=== PATIENT | female | born 1990 | race Caucasian/White ===

== ENCOUNTER → 2016-07-31 | Outpatient (CLI) | payer OTHER ==
[~2016-07-31] MED LIST: AMOXICILLIN500 MG PO; BACTRIM DS 8001 TA1 PO; BACTROBAN CREAM15 GM PO; BIAXIN500 MG PO; CEPHALEXIN500 M1 PO; CLARITIN10 MG PO; COLACE100 MG PO; DIFLUCAN150 MG PO; IRON325 M1 PO; KEFLEX500 MG PO; MACROBID100 M1 PO; MIRALAX POWDER17 G1 PO; MOTRIN800 MG PO; PEN-VK500 MG PO; PERCOCET 325 MG1 TA6 PO; PRENATAL1 TA1 PO; PRENATAL1 TA3 PO; PRILOSEC20 M1; ROBITUSSIN DM PO; ROBITUSSIN100 MG/5 M PO; ZITHROMAX Z PA250 MG PO; ZYRTEC10 MG PO
== END | disposition home or self-care (01) ==
LOC: RAD 14:28
DX: M25.562 Pain in left knee (principal); M79.605 Pain in left leg

== ENCOUNTER 2016-12-09 16:30 | Emergency (ER) | payer OTHER ==
[~2016-12-09] VITALS: Wt 68.0 kg
[2016-12-09 16:42] VITALS: BP 132/66
[2016-12-09] MEDS ORDERED: CLARITIN10 MG PO (17:34)
[2016-12-09] MEDS ORDERED: ROBITUSSIN DM 105 ML PO (17:34)
[2016-12-09] MEDS ORDERED: FLONASE ALLERG9.9 ML NAS (17:34)
== END 2016-12-09 18:09 | disposition home or self-care (01) ==
LOC: ED 16:30
DX: B34.9 Viral infection, unspecified (principal); R03.0 Elevated blood-pressure reading, without diagnosis of hypertension; F17.200 Nicotine dependence, unspecified, uncomplicated

== ENCOUNTER 2017-11-26 20:55 | Emergency (ER) | payer OTHER ==
[~2017-11-26] VITALS: Ht 175.2 cm; Wt 81.2 kg
[~2017-11-26 20:55] MED LIST changes: +FLONASE ALLERG9.9 ML NAS; +ROBITUSSIN DM 105 ML PO
[2017-11-26 20:58] VITALS: BP 129/69
[2017-11-26] MEDS ORDERED: AMOXICILLIN500 M3 PO (21:13)
[2017-11-26] MEDS ORDERED: PROAIR HFA8.5 GM INH (21:14)
== END 2017-11-26 21:45 | disposition home or self-care (01) ==
LOC: ED 20:55
DX: O99.512 Diseases of the respiratory system complicating pregnancy, second trimester (principal); O99.332 Smoking (tobacco) complicating pregnancy, second trimester; B34.9 Viral infection, unspecified; R09.81 Nasal congestion; R05 Cough; F17.200 Nicotine dependence, unspecified, uncomplicated; Z3A.17 17 weeks gestation of pregnancy

== ENCOUNTER 2019-04-03 08:39 | Emergency (ER) | payer OTHER ==
[~2019-04-03] VITALS: Ht 160 cm; Wt 73.9 kg
[~2019-04-03 08:39] MED LIST changes: +AMOXICILLIN500 M3 PO; +PROAIR HFA8.5 GM INH
[2019-04-03 08:43] VITALS: BP 115/73
[2019-04-03] MEDS ORDERED: AMOXICILLIN500 M2 PO (09:22)
[2019-04-03] MEDS ORDERED: TAMIFLU 75MG CA75 MG PO (09:22)
== END 2019-04-03 09:34 | disposition home or self-care (01) ==
LOC: ED 08:39
DX: J02.0 Streptococcal pharyngitis (principal); H92.09 Otalgia, unspecified ear; Z20.828 Contact with and (suspected) exposure to other viral communicable diseases; Z79.2 Long term (current) use of antibiotics; Z79.899 Other long term (current) drug therapy

== ENCOUNTER 2019-08-30 20:32 | Emergency (ER) | payer OTHER ==
[~2019-08-30] VITALS: Ht 175.2 cm; Wt 72.6 kg
[~2019-08-30 20:32] MED LIST changes: +AMOXICILLIN500 M2 PO; +TAMIFLU 75MG CA75 MG PO
[2019-08-30 20:39] VITALS: BP 140/85
[2019-08-30 21:22] LABS: BASO % 0.1 % (0.0-1.0); EOS % 0.4 % (1.0-4.0); HEMATOCRIT 35.5 % (37.0-47.0); LYMPH # 1.6 10*3/uL (1.3-4.4); LYMPH % 17.2 % (27.0-41.0); MEAN CELL VOLUME 91.7 fl (81.0-99.0); MEAN CORPUSCULAR HGB 29.5 pg (27.0-31.0); MEAN CORPUSCULAR HGB CONC 32.1 g/dl (33.0-37.0); MEAN PLATELET VOLUME 9.5 fl (9.6-12.3); MONO # 0.4 10*3/uL (0.1-1.0); MONO % 4.4 % (3.0-9.0); NEUT # 7.2 10*3/uL (2.3-7.9); NEUT % 77.7 % (47.0-73.0); PLATELET COUNT AUTOMATED 271 10*3/uL (130-400); RED BLOOD COUNT 3.87 10*6/uL (4.10-5.10); RED CELL DISTRI WIDTH 14.3 % (0-14.5); WHITE BLOOD COUNT 9.2 10*3/uL (4.8-10.8)
[2019-08-30 21:35] LABS: ALBUMIN 3.6 gm/dl (3.1-4.5); ALKALINE PHOSPHATASE 97 U/L (45-117); BUN 9 mg/dl (7-24); CHLORIDE 110 mmol/L (98-107); CREATININE 0.71 mg/dL (0.55-1.02); LIPASE 127 U/L (73-393); POTASSIUM 3.8 mmol/L (3.5-5.1); SGOT/AST 122 IU/L (3-35); SGPT/ALT 68 U/L (12-78); SODIUM 140 mmol/L (136-145); TOTAL PROTEIN 7.1 gm/dL (6.4-8.2)
[2019-08-30 22:41] LABS: BILIRUBIN NEGATIVE (NEGATIVE); BLOOD TRACE-INTACT (NEGATIVE); CLARITY SL CLOUDY (CLEAR); COLOR YELLOW (YELLOW); GLUCOSE NEGATIVE (NEGATIVE); KETONE NEGATIVE (NEGATIVE); LEUKO ESTERASE NEGATIVE (NEGATIVE); NITRITE NEGATIVE (NEGATIVE); PH 8.5 (5.0-9.0); UROBILINOGEN 0.2 E.U./dl (0.2-1.0)
[2019-08-30 22:44] LABS: BACTERIA 1+; EPITHELIAL CELLS 16-20
[2019-08-30] MEDS ORDERED: DICYCLOMINE HCL10 MG PO (23:13)
== END 2019-08-30 23:48 | disposition home or self-care (01) ==
LOC: ED 20:32
PROVIDERS: Physician Assistant
DX: R10.10 Upper abdominal pain, unspecified (principal); F17.200 Nicotine dependence, unspecified, uncomplicated; Z79.899 Other long term (current) drug therapy

== ENCOUNTER 2019-09-02 11:08 | Inpatient (IN) | payer OTHER ==
[~2019-09-02] VITALS: Ht 175.2 cm; Wt 74.9 kg
[~2019-09-02 11:08] MED LIST changes: +DICYCLOMINE HCL10 MG PO
[2019-09-02 11:14] VITALS: BP 118/77
[2019-09-02 11:46] LABS: BASO % 0.5 % (0.0-1.0); EOS # 0.2 10*3/uL (0.0-0.4); EOS % 4.2 % (1.0-4.0); HEMATOCRIT 37.8 % (37.0-47.0); LYMPH % 18.3 % (27.0-41.0); MEAN CORPUSCULAR HGB 29.7 pg (27.0-31.0); MEAN CORPUSCULAR HGB CONC 32.3 g/dl (33.0-37.0); MEAN PLATELET VOLUME 9.9 fl (9.6-12.3); MONO # 0.3 10*3/uL (0.1-1.0); MONO % 6.2 % (3.0-9.0); NEUT # 3.9 10*3/uL (2.3-7.9); NEUT % 70.6 % (47.0-73.0); PLATELET COUNT AUTOMATED 276 10*3/uL (130-400); RED BLOOD COUNT 4.11 10*6/uL (4.10-5.10); RED CELL DISTRI WIDTH 14.4 % (0-14.5); WHITE BLOOD COUNT 5.5 10*3/uL (4.8-10.8)
[2019-09-02 11:56] LABS: BACTERIA TRACE; BILIRUBIN NEGATIVE (NEGATIVE); BLOOD 1+ (NEGATIVE); CLARITY SL CLOUDY (CLEAR); COLOR YELLOW (YELLOW); EPITHELIAL CELLS 16-20; GLUCOSE NEGATIVE (NEGATIVE); KETONE TRACE (NEGATIVE); LEUKO ESTERASE NEGATIVE (NEGATIVE); NITRITE NEGATIVE (NEGATIVE); UROBILINOGEN 0.2 E.U./dl (0.2-1.0)
[2019-09-02 11:58] LABS: ACT PARTIAL THROMBO TIME 28.2 SECONDS (20.0-32.1); INTERNATIONAL NORM RATIO 0.9 (2.0-3.5)
[2019-09-02 12:02] LABS: ALBUMIN 3.7 gm/dl (3.1-4.5); ALKALINE PHOSPHATASE 268 U/L (45-117); BUN 11 mg/dl (7-24); CHLORIDE 106 mmol/L (98-107); CREATININE 0.71 mg/dL (0.55-1.02); LIPASE 131 U/L (73-393); POTASSIUM 4.1 mmol/L (3.5-5.1); SGOT/AST 74 IU/L (3-35); SGPT/ALT 365 U/L (12-78); SODIUM 135 mmol/L (136-145); TOTAL PROTEIN 7.7 gm/dL (6.4-8.2)
[2019-09-02 12:03] LABS: BETA-HCG, QUANT < 1.0 mIU/mL (1-3)
[2019-09-02 13:00] VITALS: BP 112/73
--- NOTE | 2019-09-02 13:51 | NUR ---
A 29, admitted to 5E, under the services of JESÚS Reynolds DO with a diagnosis of DILATION OF BILIARY TRACT, CHOLELITHIASIS. Chief complaint is ABDOMINAL PAIN. Patient arrived via wheel chair from ER. Monitor applied. Initial assessment completed. Vital signs taken and recorded. JESÚS REYNOLDS DO notified of admission to the unit. Orders received. See assessment for past medical history, medications and allergies. Patient and/or family oriented to unit. [address] visitation policy reviewed. Clothing/patient valuable form completed. GASPER ZAMORA
--- NOTE | 2019-09-02 13:59 | NUR ---
DR ALMAGUER AWARE OF NEW CONSULT
[2019-09-02 16:00] VITALS: BP 112/67
--- NOTE | 2019-09-02 17:23 | NUR ---
PT MEDICATED WITH PRN NORCO FOR C/O ABDOMINAL PAIN RATED A 9/10
--- NOTE | 2019-09-02 18:10 | NUR ---
PT STATES THAT HER PAIN IS NOW A 2/10. PRN NORCO EFFECTIVE.
[2019-09-02 20:00] VITALS: BP 123/63
--- NOTE | 2019-09-02 20:58 | NUR ---
24 HR chart check completed.
--- NOTE | 2019-09-02 22:02 | NUR ---
C/O ABD PAIN RATED "5" NORCO GIVEN PER ORDER. SEE MAR.
--- NOTE | 2019-09-02 23:00 | NUR ---
NORCO EFFECTIVE FOR ABD PAIN PER PT.
[2019-09-03] VITALS: BP 108/61
--- NOTE | 2019-09-03 05:51 | NUR ---
RANJEETCO GIVEN PER ORDER FOR UPPER EPIGASTRIC AROUND TO BACK PAIN RATED "5-6". SEE MAR.
[2019-09-03 06:08] LABS: BASO % 0.9 % (0.0-1.0); EOS # 0.2 10*3/uL (0.0-0.4); EOS % 5.1 % (1.0-4.0); HEMATOCRIT 35.3 % (37.0-47.0); LYMPH # 1.8 10*3/uL (1.3-4.4); LYMPH % 38.6 % (27.0-41.0); MEAN CELL VOLUME 92.4 fl (81.0-99.0); MEAN CORPUSCULAR HGB 29.6 pg (27.0-31.0); MEAN PLATELET VOLUME 9.8 fl (9.6-12.3); MONO # 0.5 10*3/uL (0.1-1.0); MONO % 10.2 % (3.0-9.0); PLATELET COUNT AUTOMATED 243 10*3/uL (130-400); RED BLOOD COUNT 3.82 10*6/uL (4.10-5.10); RED CELL DISTRI WIDTH 14.2 % (0-14.5); WHITE BLOOD COUNT 4.5 10*3/uL (4.8-10.8)
[2019-09-03 06:41] LABS: ALBUMIN 3.2 gm/dl (3.1-4.5); BILIRUBIN, DIRECT 2.5 mg/dL (0.0-0.2)
--- NOTE | 2019-09-03 06:42 | NUR ---
NORCO EFFECTIVE FOR PAIN PER PT.
[2019-09-03 06:49] LABS: FREE T4 1.42 ng/dl (0.76-1.46); THYROID STIM HORMONE (HS) 1.19 uIU/ml (0.358-4.75); TOTAL PROTEIN 6.9 gm/dL (6.4-8.2)
[2019-09-03 06:54] LABS: ALBUMIN 3.2 gm/dl (3.1-4.5); ALKALINE PHOSPHATASE 242 U/L (45-117); BUN 10 mg/dl (7-24); CHLORIDE 107 mmol/L (98-107); CREATININE 0.63 mg/dL (0.55-1.02); POTASSIUM 3.9 mmol/L (3.5-5.1); SGOT/AST 67 IU/L (3-35); SGPT/ALT 278 U/L (12-78); SODIUM 137 mmol/L (136-145); TOTAL PROTEIN 6.7 gm/dL (6.4-8.2)
[2019-09-03 08:00] VITALS: BP 107/61
[2019-09-03 08:34] LABS: VITAMIN D, 25-HYDROXY 23.7 ng/mL (30-100)
[2019-09-03 12:00] VITALS: BP 110/64
--- NOTE | 2019-09-03 12:16 | NUR ---
Clinical Trials Systems Administrator in to talk to patient. Patient states lives at HOME with EVELYN. There are SEVERAL steps in the home. Physician: NONE AT THIS TIME [facility]acy: [facility] Home health services: NONE Patient's level of ADLs: INDEPENDENT Patient has working utilities: YES DME: NONE Follow-up physician's appointment after d/c: PT WILL FIND MD AND MAKE APPOINTMENT ON DISCHARGE Does patient want to access PORTAL?: NO Discharge plan PT LIVES AT HOME WITH HER CHILDREN AND IS INDEDPENDENT IN HER CARE. DENIES SHE WILL HAVE ANY NEEDS WHEN DISCHARGED. STATES HER MOTHER CAN HELP HER IF SHE NEEDS IT. PLANS TO RETURN HOME WHEN MEDICALLY STABLE. WILL CONTINUE TO FOLLOW. STATES SHE WILL HAVE A RIDE HOME ON DISCHARGE. . BRENNA BERGMAN
[2019-09-03 16:00] VITALS: BP 132/64
--- NOTE | 2019-09-03 17:18 | NUR ---
PT ADMINISTERED PRN NORCO FOR C/O PAIN RATED A 8/10. WILL MONITOR FOR EFFECTIVENESS.
--- NOTE | 2019-09-03 18:00 | NUR ---
PT REPORTS RELIEF OF PAIN. PRN NORCO EFFECTIVE.
[2019-09-03 20:00] VITALS: BP 118/67
--- NOTE | 2019-09-03 22:19 | NUR ---
C/O NAUSEA. ZOFRAN GIVEN PER ORDER FOR NAUSEA. SEE MAR.
--- NOTE | 2019-09-03 22:28 | NUR ---
NORCO GIVEN PER ORDER FOR MID EPIGASTRIC/RIGHT SIDE ABD PAIN RADIATING TO BACK RATED "5-6" SEE MAR.
--- NOTE | 2019-09-03 23:15 | NUR ---
ZOFRAN EFFECTIVE FOR NAUSEA PER PT.
--- NOTE | 2019-09-03 23:25 | NUR ---
NORCO EFFECTIVE FOR ABD PAIN PER PT.
[2019-09-04] VITALS (9 sets, daily range): BP systolic 97–125; BP diastolic 50–77
--- NOTE | 2019-09-04 03:09 | NUR ---
24 HR chart check completed.
[2019-09-04 06:35] LABS: BASO % 0.7 % (0.0-1.0); EOS # 0.2 10*3/uL (0.0-0.4); EOS % 4.4 % (1.0-4.0); HEMATOCRIT 33.8 % (37.0-47.0); LYMPH # 1.7 10*3/uL (1.3-4.4); LYMPH % 41.7 % (27.0-41.0); MEAN CELL VOLUME 93.6 fl (81.0-99.0); MEAN CORPUSCULAR HGB 29.1 pg (27.0-31.0); MEAN CORPUSCULAR HGB CONC 31.1 g/dl (33.0-37.0); MEAN PLATELET VOLUME 10.7 fl (9.6-12.3); MONO # 0.4 10*3/uL (0.1-1.0); NEUT # 1.8 10*3/uL (2.3-7.9); NEUT % 43.2 % (47.0-73.0); PLATELET COUNT AUTOMATED 253 10*3/uL (130-400); RED BLOOD COUNT 3.61 10*6/uL (4.10-5.10); RED CELL DISTRI WIDTH 14.4 % (0-14.5); WHITE BLOOD COUNT 4.1 10*3/uL (4.8-10.8)
[2019-09-04 06:57] LABS: BUN 6 mg/dl (7-24); CHLORIDE 110 mmol/L (98-107); CREATININE 0.63 mg/dL (0.55-1.02); POTASSIUM 3.9 mmol/L (3.5-5.1); SODIUM 140 mmol/L (136-145)
--- NOTE | 2019-09-04 09:46 | NUR ---
PT TAKEN TO SURGERY AT THIS TIME.
--- NOTE | 2019-09-04 11:42 | NUR ---
PT HAVING SURGERY TODAY. WILL CONTINUE TO FOLLOW.
--- NOTE | 2019-09-04 13:59 | NUR ---
PATIENT C/O PAIN AT INCISIONS 8/10 & NAUSEA AT THIS TIME. MEDICATED WITH IV MOPRHINE AND ZOFRAN PER ORDERS. WILL MONITOR.
--- NOTE | 2019-09-04 14:59 | NUR ---
PATIENT STATES THAT MORPHINE AND ZOFRAN ARE EFFECTIVE AND PAIN IS TOLERABLE AT THIS TIME.
--- NOTE | 2019-09-04 18:21 | NUR ---
GAVE REPORT TO RECEIVING NURSE AT [facility]
--- NOTE | 2019-09-04 18:48 | NUR ---
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 IV REMAINS PATENT WITH FLUIDS INFUSING. PATIENT TRANSFERRED VIA AMBULANCE. REPORT HAD ALREADY BEEN GIVEN TO RECEIVING NURSE.
== END 2019-09-04 19:00 | disposition short-term general hospital (02) | DRG 263 ==
LOC: ED 11:08 → 5E 13:11 → EDHOLD 13:11 → 5E 13:22
PROVIDERS: Family Medicine; Internal Medicine; Registered Nurse; Surgery; ADMIT Internal Medicine
PROC: 0FT44ZZ Resection of Gallbladder, Percutaneous Endoscopic Approach (ICD-10-PCS; principal; 2019-09-04)
PROC: BF031ZZ Plain Radiography of Gallbladder and Bile Ducts using Low Osmolar Contrast (ICD-10-PCS; 2019-09-04)
DX: K80.63 Calculus of gallbladder and bile duct with acute cholecystitis with obstruction (principal); E44.1 Mild protein-calorie malnutrition; E87.1 Hypo-osmolality and hyponatremia; E80.6 Other disorders of bilirubin metabolism; R74.0 Nonspecific elevation of levels of transaminase and lactic acid dehydrogenase [LDH]; Z88.8 Allergy status to other drugs, medicaments and biological substances; Z82.49 Family history of ischemic heart disease and other diseases of the circulatory system; Z79.899 Other long term (current) drug therapy; Z87.891 Personal history of nicotine dependence; Z68.24 Body mass index [BMI] 24.0-24.9, adult

== ENCOUNTER → 2020-10-26 | Outpatient (CLI) | payer OTHER | END | disposition home or self-care (01) | LOC: RAD 16:29 | PROVIDERS: ATTEND Chiropractor Orthopedic | DX: M48.07 Spinal stenosis, lumbosacral region (principal); M41.86 Other forms of scoliosis, lumbar region; M51.26 Other intervertebral disc displacement, lumbar region ==

== ENCOUNTER → 2021-06-02 | Outpatient (CLI) | payer OTHER | END | disposition home or self-care (01) | LOC: RAD 10:11 | PROVIDERS: ATTEND Chiropractor | DX: M54.16 Radiculopathy, lumbar region (principal) ==

== ENCOUNTER 2021-06-11 17:14 | Emergency (ER) | payer OTHER ==
[~2021-06-11] VITALS: Ht 175.2 cm; Wt 81.6 kg
[2021-06-11 17:24] VITALS: BP 115/73
[2021-06-11] MEDS ORDERED: PREDNISONE20 M1 PO (19:13)
[2021-06-11] MEDS ORDERED: Motrin,Rufen800 MG PO (19:13)
[2021-06-11] MEDS ORDERED: CYCLOBENZAPRINE5 M3 PO (19:13)
== END 2021-06-11 19:23 | disposition home or self-care (01) ==
LOC: ED 17:14
DX: M54.16 Radiculopathy, lumbar region (principal); Z88.8 Allergy status to other drugs, medicaments and biological substances

== ENCOUNTER → 2021-07-27 | Outpatient (CLI) | payer OTHER ==
[~2021-07-27] MED LIST changes: +CYCLOBENZAPRINE5 M3 PO; +Motrin,Rufen800 MG PO; +PREDNISONE20 M1 PO
== END | disposition home or self-care (01) ==
LOC: LAB 12:47
PROVIDERS: ATTEND Physical Medicine & Rehabilitation Sports Medicine
DX: K80.63 Calculus of gallbladder and bile duct with acute cholecystitis with obstruction (principal); Z86.14 Personal history of Methicillin resistant Staphylococcus aureus infection

== ENCOUNTER 2021-10-06 12:30 | Emergency (ER) | payer OTHER ==
[~2021-10-06] VITALS: Ht 175.2 cm; Wt 81.6 kg
[2021-10-06 12:43] VITALS: BP 118/72
[2021-10-06] MEDS ORDERED: VIBRA-TAB100 MG PO (13:33)
== END 2021-10-06 13:41 | disposition home or self-care (01) ==
LOC: ED 12:30
DX: L03.116 Cellulitis of left lower limb (principal); Z88.8 Allergy status to other drugs, medicaments and biological substances; Z98.890 Other specified postprocedural states; Z90.89 Acquired absence of other organs

== ENCOUNTER 2022-05-23 12:49 | Emergency (ER) | payer OTHER ==
[~2022-05-23] VITALS: Ht 175.2 cm; Wt 77.1 kg
[~2022-05-23 12:49] MED LIST changes: +VIBRA-TAB100 MG PO
[2022-05-23 12:56] VITALS: BP 117/97
[2022-05-23 13:32] LABS: HEMATOCRIT 36.5 % (37.0-47.0); MANUAL DIFF REFLEX YES; MEAN CELL VOLUME 91.5 fl (81.0-99.0); MEAN CORPUSCULAR HGB 29.6 pg (27.0-31.0); MEAN CORPUSCULAR HGB CONC 32.3 g/dl (33.0-37.0); MEAN PLATELET VOLUME 9.6 fl (9.6-12.3); PLATELET COUNT AUTOMATED 385 10*3/uL (130-400); RED BLOOD COUNT 3.99 10*6/uL (4.10-5.10); RED CELL DISTRI WIDTH 13.2 % (0-14.5); WHITE BLOOD COUNT 12.1 10*3/uL (4.8-10.8)
[2022-05-23 13:42] LABS: ALKALINE PHOSPHATASE 79 U/L (46-116); BUN 8 mg/dl (9-23); CHLORIDE 104 mmol/L (98-107); POTASSIUM 2.8 mmol/L (3.4-5.1); SGPT/ALT 20 U/L (10-49); TOTAL PROTEIN 6.9 gm/dL (6.0-8.0)
[2022-05-23 13:47] LABS: ATYPICAL LYMPHS 1 % (0-0); TOTAL CELLS COUNTED 100 #CELLS
[2022-05-23 13:48] LABS: OVALOCYTES FEW; PLATELET SUFFICIENCY NORMAL (NORMAL); POLYCHROMASIA SLIGHT; TOXIC GRANULATION SLIGHT; VACUOLATION OF NEUTROPHILS SLIGHT
[2022-05-23] MEDS ORDERED: AUGMENTIN125 MG/5 M PO (14:05)
[2022-05-23] MEDS ORDERED: AMOX-CLAV 875-1 EACH PO ×2 (14:34→20:01)
== END 2022-05-23 14:51 | disposition home or self-care (01) ==
LOC: ED 12:49
PROVIDERS: Internal Medicine
DX: J18.9 Pneumonia, unspecified organism (principal); Z88.8 Allergy status to other drugs, medicaments and biological substances; Z98.890 Other specified postprocedural states; Z90.89 Acquired absence of other organs; Z72.0 Tobacco use

== ENCOUNTER 2022-07-23 21:15 | Emergency (ER) | payer OTHER ==
[~2022-07-23] VITALS: Ht 175.2 cm; Wt 81.6 kg
[~2022-07-23 21:15] MED LIST changes: +AMOX-CLAV 875-1 EACH PO; +AUGMENTIN125 MG/5 M PO
[2022-07-23 21:21] VITALS: BP 124/67
[2022-07-23] MEDS ORDERED: SEPTDS PO (21:36)
== END 2022-07-23 21:50 | disposition home or self-care (01) ==
LOC: ED 21:15
DX: L03.115 Cellulitis of right lower limb (principal); Z88.8 Allergy status to other drugs, medicaments and biological substances; Z98.890 Other specified postprocedural states; Z90.89 Acquired absence of other organs; Z72.0 Tobacco use

== ENCOUNTER 2023-03-22 22:59 | Emergency (ER) | payer OTHER ==
[~2023-03-22] VITALS: Ht 175.2 cm; Wt 77.1 kg
[~2023-03-22 22:59] MED LIST changes: +SEPTDS PO
[2023-03-22 23:06] VITALS: BP 130/84
[2023-03-23] MEDS ORDERED: PREDNISONE20 M1 PO (00:03)
[2023-03-23] MEDS ORDERED: VIBRAMYCIN100 MG PO (00:03)
== END 2023-03-23 00:27 | disposition home or self-care (01) ==
LOC: ED 22:59
DX: J18.9 Pneumonia, unspecified organism (principal); Z53.20 Procedure and treatment not carried out because of patient's decision for unspecified reasons; Z88.8 Allergy status to other drugs, medicaments and biological substances; Z98.890 Other specified postprocedural states; Z90.89 Acquired absence of other organs; Z72.0 Tobacco use; Z20.822 Contact with and (suspected) exposure to COVID-19

== ENCOUNTER → 2023-04-19 | Outpatient (CLI) | payer OTHER ==
[~2023-04-19] MED LIST changes: +VIBRAMYCIN100 MG PO
[2023-04-19 11:26] LABS: BASO % 0.5 % (0.0-1.0); EOS # 0.1 10*3/uL (0.0-0.4); EOS % 0.8 % (1.0-4.0); HEMATOCRIT 38.3 % (37.0-47.0); LYMPH # 1.4 10*3/uL (1.3-4.4); LYMPH % 18.3 % (27.0-41.0); MEAN CORPUSCULAR HGB CONC 31.9 g/dl (33.0-37.0); MEAN PLATELET VOLUME 9.4 fl (9.6-12.3); MONO # 0.3 10*3/uL (0.1-1.0); MONO % 4.6 % (3.0-9.0); NEUT # 5.6 10*3/uL (2.3-7.9); NEUT % 75.4 % (47.0-73.0); PLATELET COUNT AUTOMATED 255 10*3/uL (130-400); RED BLOOD COUNT 4.21 10*6/uL (4.10-5.10); RED CELL DISTRI WIDTH 13.2 % (0-14.5); WHITE BLOOD COUNT 7.5 10*3/uL (4.8-10.8)
[2023-04-19 12:19] LABS: ALKALINE PHOSPHATASE 80 U/L (46-116); BUN 10 mg/dl (9-23); CHLORIDE 107 mmol/L (98-107); POTASSIUM 4.2 mmol/L (3.4-5.1); SGPT/ALT 19 U/L (5-49); TOTAL PROTEIN 7.5 gm/dL (6.0-8.0)
== END | disposition home or self-care (01) ==
LOC: LAB 11:10
PROVIDERS: ATTEND Internal Medicine
DX: H65.01 Acute serous otitis media, right ear (principal)

== ENCOUNTER 2023-09-22 18:49 | Emergency (ER) | payer OTHER ==
[~2023-09-22] VITALS: Ht 175.2 cm; Wt 77.1 kg
[2023-09-22 19:17] VITALS: BP 132/79
[2023-09-22] MEDS ORDERED: SODIUM CHLORIDE 0.9% 1,000 ML IV ONE (19:25)
[2023-09-22] MEDS ORDERED: Pantoprazole Sodium 40 MG VIAL IV ONE (19:30)
[2023-09-22] MEDS ORDERED: Ondansetron Hydrochloride 4 MG/2 ML VIAL IV ONE (19:30)
[2023-09-22 19:36] LABS: BASO % 0.3 % (0.0-1.0); EOS % 0.3 % (1.0-4.0); HEMATOCRIT 37.9 % (37.0-47.0); LYMPH # 1.5 10*3/uL (1.3-4.4); LYMPH % 19.3 % (27.0-41.0); MEAN CELL VOLUME 88.8 fl (81.0-99.0); MEAN CORPUSCULAR HGB 29.3 pg (27.0-31.0); MEAN PLATELET VOLUME 9.7 fl (9.6-12.3); MONO # 0.5 10*3/uL (0.1-1.0); MONO % 6.5 % (3.0-9.0); NEUT # 5.5 10*3/uL (2.3-7.9); NEUT % 73.3 % (47.0-73.0); PLATELET COUNT AUTOMATED 299 10*3/uL (130-400); RED BLOOD COUNT 4.27 10*6/uL (4.10-5.10); RED CELL DISTRI WIDTH 13.1 % (0-14.5); WHITE BLOOD COUNT 7.5 10*3/uL (4.8-10.8)
[2023-09-22 19:50] LABS: BUN 7 mg/dl (9-23); CHLORIDE 107 mmol/L (98-107); LIPASE 36 U/L (12-53); POTASSIUM 3.5 mmol/L (3.4-5.1)
[2023-09-22] MEDS ORDERED: Dicyclomine Hydrochloride 20 MG/10 ML OSYR PO STA (20:05)
[2023-09-22] MEDS ORDERED: MG-AL HYDROXIDE/SIMETICONE 30 ML UDC PO STA (20:05)
[2023-09-22] MEDS ORDERED: Lidocaine Hydrochloride 15 ML UDC PO STA (20:05)
[2023-09-22] MEDS ORDERED: PROTONIX20 MG PO (20:49)
== END 2023-09-22 21:21 | disposition home or self-care (01) ==
LOC: ED 18:49
PROVIDERS: Nurse Practitioner Family
DX: K21.9 Gastro-esophageal reflux disease without esophagitis (principal); Z88.8 Allergy status to other drugs, medicaments and biological substances; E87.1 Hypo-osmolality and hyponatremia; Z72.0 Tobacco use

== ENCOUNTER 2024-02-03 14:44 | Emergency (ER) | payer OTHER ==
[~2024-02-03] VITALS: Ht 177.8 cm; Wt 79.4 kg
[~2024-02-03 14:44] MED LIST changes: +PROTONIX20 MG PO
[2024-02-03 15:16] VITALS: BP 114/78
[2024-02-03] MEDS ORDERED: AMOXICILLIN500 M2 PO (15:17)
[2024-02-03] MEDS ORDERED: Lidocaine Hydrochloride 15 ML UDC PO STA (15:29)
[2024-02-03] MEDS ORDERED: Dicyclomine Hydrochloride 20 MG/10 ML OSYR PO STA (15:29)
[2024-02-03] MEDS ORDERED: MG-AL HYDROXIDE/SIMETICONE 30 ML UDC PO STA (15:29)
[2024-02-03 15:49] LABS: BASO % 0.2 % (0.0-1.0); EOS % 0.4 % (1.0-4.0); HEMATOCRIT 38.8 % (37.0-47.0); MEAN CELL VOLUME 90.2 fl (81.0-99.0); MEAN CORPUSCULAR HGB 28.8 pg (27.0-31.0); MONO # 0.4 10*3/uL (0.1-1.0); MONO % 4.5 % (3.0-9.0); NEUT # 8.2 10*3/uL (2.3-7.9); NEUT % 82.5 % (47.0-73.0); PLATELET COUNT AUTOMATED 374 10*3/uL (130-400); RED CELL DISTRI WIDTH 12.7 % (0-14.5); WHITE BLOOD COUNT 9.9 10*3/uL (4.8-10.8)
[2024-02-03 16:06] LABS: ALKALINE PHOSPHATASE 79 U/L (46-116); BUN 9 mg/dl (9-23); CHLORIDE 105 mmol/L (98-107); LIPASE 42 U/L (12-53); POTASSIUM 3.9 mmol/L (3.4-5.1); SGPT/ALT 10 U/L (5-49); TOTAL PROTEIN 8.4 gm/dL (6.0-8.0)
[2024-02-03 16:08] LABS: B-hCG (QUALITATIVE) NEGATIVE (NEGATIVE)
== END 2024-02-03 18:12 | disposition home or self-care (01) ==
LOC: ED 14:44
PROVIDERS: Physician Assistant Medical
DX: K52.9 Noninfective gastroenteritis and colitis, unspecified (principal); R07.89 Other chest pain; Z72.0 Tobacco use; Z90.49 Acquired absence of other specified parts of digestive tract; Z88.8 Allergy status to other drugs, medicaments and biological substances; Z98.890 Other specified postprocedural states; Z90.89 Acquired absence of other organs

== ENCOUNTER 2024-08-27 23:33 | Emergency (ER) | payer OTHER ==
[~2024-08-27] VITALS: Ht 175.2 cm; Wt 77.1 kg
[2024-08-27] MEDS ORDERED: ESOMEPRAZOLE MA40 M1 PO (23:40)
[2024-08-27 23:56] LABS: BASO % 0.3 % (0.0-1.0); EOS % 0.1 % (1.0-4.0); HEMATOCRIT 34.1 % (37.0-47.0); MEAN CELL VOLUME 86.8 fl (81.0-99.0); MEAN CORPUSCULAR HGB 28.2 pg (27.0-31.0); MEAN CORPUSCULAR HGB CONC 32.6 g/dl (33.0-37.0); MEAN PLATELET VOLUME 9.4 fl (9.6-12.3); MONO # 0.5 10*3/uL (0.1-1.0); MONO % 6.5 % (3.0-9.0); NEUT # 5.4 10*3/uL (2.3-7.9); NEUT % 70.1 % (47.0-73.0); PLATELET COUNT AUTOMATED 285 10*3/uL (130-400); RED BLOOD COUNT 3.93 10*6/uL (4.10-5.10); RED CELL DISTRI WIDTH 13.6 % (0-14.5); WHITE BLOOD COUNT 7.7 10*3/uL (4.8-10.8)
[2024-08-28 00:21] LABS: ALKALINE PHOSPHATASE 76 U/L (46-116); BUN 8 mg/dl (9-23); CHLORIDE 104 mmol/L (98-107); LIPASE 41 U/L (12-53); POTASSIUM 3.7 mmol/L (3.4-5.1); SGPT/ALT 11 U/L (5-49); TOTAL PROTEIN 7.5 gm/dL (6.0-8.0)
[2024-08-28] MEDS ORDERED: Ondansetron Hydrochloride 4 MG/2 ML VIAL IV ONE (01:50)
[2024-08-28] MEDS ORDERED: Ketorolac Tromethamine 30 MG/ML VIAL IV ONE (03:15)
[2024-08-28] MEDS ORDERED: MG-AL HYDROXIDE/SIMETICONE 30 ML UDC PO STA (03:15)
[2024-08-28] MEDS ORDERED: Dicyclomine Hydrochloride 20 MG/10 ML OSYR PO STA (03:15)
[2024-08-28] MEDS ORDERED: Lidocaine Hydrochloride 15 ML UDC PO STA (03:15)
[2024-08-28 03:51] VITALS: BP 113/56
== END 2024-08-28 04:01 | disposition home or self-care (01) ==
LOC: ED 23:33
PROVIDERS: Internal Medicine
DX: K21.9 Gastro-esophageal reflux disease without esophagitis (principal); D64.9 Anemia, unspecified; F17.200 Nicotine dependence, unspecified, uncomplicated; Z79.899 Other long term (current) drug therapy; Z88.8 Allergy status to other drugs, medicaments and biological substances; Z98.890 Other specified postprocedural states

== ENCOUNTER → 2024-09-29 | Outpatient (CLI) | payer OTHER ==
[~2024-09-29] MED LIST changes: +ESOMEPRAZOLE MA40 M1 PO
== END | disposition home or self-care (01) ==
LOC: RESCLI 14:42
PROVIDERS: ATTEND Internal Medicine
DX: K21.9 Gastro-esophageal reflux disease without esophagitis (principal); D64.9 Anemia, unspecified; Z79.899 Other long term (current) drug therapy; Z98.890 Other specified postprocedural states; Z88.8 Allergy status to other drugs, medicaments and biological substances